=== PATIENT | female | born 1950 | race Caucasian/White ===

== ENCOUNTER 2017-05-07 20:28 | Emergency (ER) | payer MEDICARE, OTHER ==
[2017-05-07 20:41] VITALS: BP 147/79
[2017-05-07] MEDS ORDERED: Lidocaine 1% 50 ML MDV INJECT ONE (21:25)
--- NOTE | 2017-05-07 21:58 | EDM.PDOC ---
ED HPI GENERAL MEDICAL PROBLEM - General Chief Complaint: Laceration Stated Complaint: LACERATION TO FOOT Time Seen by Provider: 05/07/17 21:10 Source of Information: Reports: Patient History Limitations: Reports: No Limitations - History of Present Illness INITIAL COMMENTS - FREE TEXT/NARRATIVE: 67-year-old female presents for evaluation treatment of a laceration to the dorsal right foot. Injury occurred prior to arrival in the ER. Patient reports that [place] are [place] in [place]. She states that she opened a pantry door after a long ride and a bottle of olive oil fell out of the pantry. She states that the bottle fell landing on her right foot second and third toes. She has a laceration to the right foot base of the second toe. She has bruising to the right foot second and third toes. She has been walking on it with minimal discomfort. Does not feel like she broke her toes. Tetanus is up-to-date. Onset: Today Location: Reports: Lower Extremity, Right right second toe Pain Score (Numeric/FACES): 3 - Related Data Allergies Allergy/AdvReac Type Severity Reaction Status Date / Time cefaclor [From Ceclor] Allergy Rash Verified 05/07/17 20:41 Home Meds: Home Meds Hydrochlorothiazide 25 mg PO DAILY 05/07/17 [History] Metoprolol Succinate [Toprol XL] 12.5 mg PO DAILY 05/07/17 [History] Rivaroxaban [Xarelto] 20 mg PO DAILY 05/07/17 [History] atorvaSTATin [Lipitor] 80 mg PO BEDTIME 05/07/17 [History] Past Medical History - Past Health History Medical/Surgical History: Denies Medical/Surgical History HEENT History: Reports: Impaired Vision Cardiovascular History: Reports: Afib Respiratory History: Reports: Sleep Apnea Social & Family History - Family History Family Medical History: Noncontributory - Tobacco Use Smoking Status *Q: Never Smoker - Caffeine Use Caffeine Use: Reports: Coffee - Recreational Drug Use Recreational Drug Use: No ED ROS GENERAL - Review of Systems Review Of Systems: See Below Musculoskeletal: Denies: Foot Pain Skin: Reports: Bruising (right foot dorsal toes 2 and 3), Wound (lacteration to the dorsal right foot base of the 2nd toe) Neurological: Denies: Numbness, Tingling, Difficulty Walking ED EXAM, SKIN/RASH Exam: See Below Exam Limited By: No Limitations General Appearance: Alert, WD/WN, No Apparent Distress Respiratory/Chest: No Respiratory Distress Cardiovascular: Normal Peripheral Pulses, Regular Rate, Rhythm Peripheral Pulses: 2+: Popliteal (R), Posterior Tibial (L), Posterior Tibial (R) , Dorsalis Pedis (L), Dorsalis Pedis (R) Neurological: Alert, Oriented, Normal Gait Psychiatric: Normal Affect, Normal Mood Skin: Warm, Dry, Normal Color, Ecchymosis (approximately 1 cm in diameter ecchymosis to the dorsal right foor 2nd and 3rd toes), Wound/Incision (1cm laceration to the dorsal right foot at the base of the 2nd toe) Location, Skin: Lower Extremity, Right Characteristics: Linear ED SKIN PROCEDURES - Laceration/Wound Repair Right Distal Ventral Foot Lac/Wound length In cm: 1 (right foot bas of 2nd toe) Appearance: Subcutaneous Distal NVT: Neuro & Vascular Intact, No Tendon Injury Local Anesthesia - Lidocaine (Xylocaine): 1% Plain Local Anesthetic Volume: 2cc Skin Prep: Saline, Sterile Drape Exploration/Debridement/Repair: Wound Explored, No Foreign Material Found Closed with: Sutures Suture Size: 4-0 # of Sutures: 3 Suture Type: Nylon, Interrupted, Simple Sterile Dressing Applied: Nurse Tetanus Status Addressed: Yes Complications: No Course - Vital Signs Last Recorded V/S: Last Vital Signs Temp 36.3 C 05/07/17 20:35 Pulse 100 05/07/17 20:35 Resp 18 05/07/17 20:35 BP 147/79 H 05/07/17 20:35 Pulse Ox 100 05/07/17 20:35 - Orders/Labs/Meds Meds: Medications Discontinued Medications Generic Name Dose Route Start Last Admin Trade Name Luis Felipe PRN Reason Stop Dose Admin Lidocaine HCl 50 ml 05/07/17 21:25 05/07/17 21:49 Xylocaine 1% INJECT 05/07/17 21:26 50 ml ONETIME ONE Administration - Re-Assessments/Exams Free Text/Narrative Re-Assessment/Exam: 05/07/17 21:59 Discussed x-raying the foot. Patient does not feel like she broke her toes and declines x-ray. 3 sutures placed to the right 2nd toe. Patient tolerated the procedure well. Discharge instructions as documented. Departure - Departure Time of Disposition: 21:59 Disposition: Home, Self-Care 01 Condition: Good Clinical Impression: Laceration - Discharge Information Instructions: Laceration Care, Adult Referrals: PCP,Not In Area [Primary Care Provider] - Forms: ED Department Discharge Additional Instructions: Wash the wound with gentle soap and water twice a day. Antibacterial ointment to wound twice a day for 3 days. Keep the wound covered. Harrison tape the toes together. Try to limit movement of the area. Have the sutures removed in 7-10 days. Ice and elevated the foot. Monitor for signs of infection such as increased swelling, pus or redness. Presents to clinic or the ER should these develop. Please return to ER if your symptoms change or worsen.
== END 2017-05-07 22:17 | disposition home or self-care (01) ==
LOC: JD.ED 20:28
DX: S91.114A Laceration without foreign body of right lesser toe(s) without damage to nail, initial encounter (principal); I48.91 Unspecified atrial fibrillation; Z88.1 Allergy status to other antibiotic agents; Z79.899 Other long term (current) drug therapy; W20.8XXA Other cause of strike by thrown, projected or falling object, initial encounter
CPT/HCPCS: 12001; 99283-25